=== PATIENT | female | born 1985 | race Caucasian/White ===

== ENCOUNTER 2019-03-12 08:25 | Emergency (ER) | payer MEDICAID, OTHER ==
[2019-03-12 08:42] VITALS: BP 119/80
[2019-03-12] MEDS ORDERED: TETANUS/DIPHTHERIA/PERTUSSIS 0.5 ML SYRINGE IM ONE (08:44)
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
== END 2019-03-12 09:06 | disposition home or self-care (01) ==
LOC: ED 08:25
DX: T21.25XA Burn of second degree of buttock, initial encounter (principal)
CPT/HCPCS: 90471; 99283